=== PATIENT | female | born 1935 | race Caucasian/White ===

== ENCOUNTER → 2020-05-15 10:24 | Outpatient (NON) | payer MEDICARE, SELFPAY ==
[2020-05-15 11:10] LABS: Basophils Absolute Auto 0.05 K/mm3 (0.00-0.10); Basophils Percent Auto 0.4 % (0.0-1.0); Eosinophils Absolute Auto 0.27 K/mm3 (0.02-0.50); Eosinophils Percent Auto 1.9 % (1.0-6.0); Hematocrit 43.9 % (35.0-42.0); Hemoglobin 14.2 g/dL (11.7-13.8); Immature Granulocyte Absolute 0.06 K/mm3 (0.00-0.00); Immature Granulocyte Percent A 0.4 % (0.0-0.0); Lymphocytes Absolute Auto 2.55 K/mm3 (1.10-4.50); Lymphocytes Percent Auto 18.3 % (18.0-42.0); Mean Corpuscular HGB Conc 32.3 g/dL (32.0-36.0); Mean Corpuscular Hemoglobin 33.8 pg (27.0-31.0); Mean Corpuscular Volume 104.5 fL (78.0-102.0); Mean Platelet Volume 11.4 fl (9.2-11.8); Monocytes Percent Auto 9.4 % (2.0-11.0); Neutrophils Absolute Auto 9.7 K/mm3 (1.7-7.2); Neutrophils Percent Auto 69.6 % (50.0-70.0); Platelet Count Result 182 K/mm3 (150-420); Red Cell Distribution Width 13.3 % (11.6-14.4); White Blood Count 13.9 K/mm3 (4.8-10.8)
[2020-05-15 11:26] LABS: Add Urine Microscopic? YES; Appearance Urine Cloudy (Clear); BNP 92.3 pg/mL (0-100); Bilirubin Urine Negative (Negative); Blood Urine Negative (Negative); Color Urine Yellow (Yellow); Glucose Urine UA Negative (Negative); Ketones Urine Trace (Negative); Leukocyte Esterase Ur 1+ (Negative); Nitrate Urine Positive (Negative); Protein Urine Negative (Negative); Urobilinogen Urine 0.2 mg/dL (0.2-1.0)
[2020-05-15 11:39] LABS: Alanine Aminotransferase 33 U/L (14-59); Alkaline Phosphatase 78 U/L (46-116); Anion Gap 7 mmol/L (8-16); Aspartate Amino Transferase 18 U/L (15-37); Bilirubin,Total 0.5 mg/dL (0.00-1.00); Blood Urea Nitrogen 16 mg/dL (7-18); Calcium 9.9 mg/dL (8.5-10.1); Carbon Dioxide 32 mmol/L (21-32); Chloride 107 mmol/L (98-108); Creatine Kinase 44 U/L (26-192); Estimated Glomerular Filt Rate 60; Free T3 2.61 pg/mL (2.18-3.98); Free T4 Free Thyroxine 1.03 ng/dL (0.76-1.46); Glucose 98 mg/dL (70-99); Magnesium 2.2 mg/dL (1.8-2.4); Osmolality Calculated 303 mOsm/kg (285-295); Phosphorus 3.6 mg/dL (2.6-4.7); Sodium 146 mmol/L (136-145); Thyroid Stimulating Hormone 3.93 uIU/mL (0.36-3.74); Total Protein 6.6 g/dL (6.4-8.2)
[2020-05-15 11:48] LABS: RBC Urine 0-2 /hpf (0-2); WBC Urine 21-30 /hpf (0-3)
[2020-05-15 11:49] LABS: Transitional Epi Cells Urine Few /hpf
[2020-05-15 11:51] LABS: D Dimer 16.22 mg/L (0.19-0.50)
[2020-05-15 12:04] LABS: Troponin I 0.07 ng/mL (0.00-0.056)
== END ==
PROVIDERS: Visit Provider Internal Medicine
DX: R06.00 Dyspnea, unspecified (principal); R41.0 Disorientation, unspecified; R00.0 Tachycardia, unspecified; R82.90 Unspecified abnormal findings in urine
CPT/HCPCS: 36415; 71046; 80053; 81001; 82550; 82553; 83735; 83880; 84100; 84439; 84443; 84481; 84484; 85025; 85380; 87077; 87086; 87088; 87186

== ENCOUNTER 2020-05-15 10:45 | Outpatient (CLI) | payer MEDICARE, MEDICAID, SELFPAY ==
--- NOTE | ~2020-05-15 | XR_ITS ---
XR chest 2V 05/15/2020 11:07 Indication: Dyspnea and cough for 4 days Procedure: PA and lateral views of the chest Comparison: 12/06/2016 Findings: Heart size normal. Bibasilar atelectasis. No focal pneumonia, edema or effusion. No pneumot horax. Moderate thoracic spondylosis. There is atherosclerosis of the aorta. Impression: 1: Bibasilar atelectasis. Reviewed, dictated and finalized at location B. Impression: 1: Bibasilar atelectasis.
== END 2020-05-15 10:46 | disposition home or self-care (01) ==
LOC: CHSIMG 10:49
PROVIDERS: PCP Internal Medicine; Visit Provider Internal Medicine
DX: R06.00 Dyspnea, unspecified (principal)
CPT/HCPCS: 71046

== ENCOUNTER 2020-05-15 12:32 | Inpatient (IN) | payer MEDICARE, MEDICAID, SELFPAY ==
[2020-05-15] VITALS (7 sets, daily range): BP systolic 132–186; BP diastolic 76–95; PULSE 64–83; RESP 16–20; TEMP 36.5–37.1; O2SAT 93–96; BMI 24.9
--- NOTE | ~2020-05-15 | US_ITS ---
EXAMINATION: US carotid duplex BI DATE: 05/16/2020 08:24 INDICATION: Right heart strain TECHNIQUE: Grayscale, color Doppler, and pulsed Doppler images of the cervical carotid arteries were obtained. The degree of vessel stenosis is placed in one of the following categories: normal, <50%, 5 0-69%, >=70% but less than near-occlusion, near-occlusion, or total occlusion. Note that percent sten osis relative to normal distal artery lumen diameter is indirectly measured from velocity measurement s as described by Chau, et al. Radiology 2003; [id number]. Notes: Normal: Peak systolic velocity <125 centimeters/sec and no plaque <50%. Peak systolic velocity <125 ( EDV <40; ICA/CCA PSV ratio <2.0; used these factors only a tandem lesions or low cardiac output or co ntralateral disease) 50-69 %: PSV 125-230 (EDV 40-100; ratio 2-4) >= 70% but less than near occlusion: PSV greater than 230 (EDV > 100; ratio> 4.0) Near Occlusion: PSV that is variable; markedly narrowed lumen Occlusion: Absent flow on color/spectral Doppler and no lumen on gottlieb scale. COMPARISON: None. FINDINGS: RIGHT: The right common carotid artery (CCA) peak systolic velocity (PSV) is 70 cm/s. The right internal car otid artery (ICA) PSV is 50 cm/s. The right ICA end-diastolic velocity (EDV) is 7 cm/s. The right ICA /CCA PSV ratio is 0.7. The external carotid artery (ECA) PSV is 110 cm/s. There is antegrade flow in the right vertebral artery. LEFT: The left CCA PSV is 61 cm/s. The left ICA PSV is 50 cm/s. The left ICA EDV is 12 cm/s. The left ICA/C CA PSV ratio is 0.8. The ECA PSV is 92 cm/s. There is antegrade flow in the left vertebral artery. IMPRESSION: 1. Less than 50% stenosis in the right internal carotid artery by sonographic criteria. 2. Less than 50% stenosis in the left internal carotid artery by sonographic criteria. Reviewed, dictated and finalized at location B. IMPRESSION: 1. Less than 50% stenosis in the right internal carotid artery by sonographic chetan ed[place]. 2. Less than 50% stenosis in the left internal carotid artery by sonographic zoey gagnon.
--- NOTE | ~2020-05-15 | CT_ITS ---
EXAMINATION: CTA chest PE protocol EXAM DATE: 05/15/2020 13:33 INDICATION: Dyspnea and shortness of breath. TECHNIQUE: Spiral CTA of the chest (pulmonary arteries) was performed with 100 cc Omnipaque 350 intr avenous contrast injection. Images were acquired during the pulmonary arterial phase. Coronal maxi mum intensity projection 3D-reconstructions were created by the technologist on dedicated workstation . Axial, coronal and sagittal reformatted images were reviewed. The dose-length product (DLP) for t his examination was 226.14 mGy-cm. The exposure was tailored according to patient size (auto mA exp osure control), and iterative reconstruction (ASIR) was used as additional dose reduction technique. There is no prior study for comparison. FINDINGS: There are right-sided interlobar and multiple segmental pulmonary emboli. There are severa l subsegmental left pulmonary emboli. Moderate clot burden with evidence of right heart strain. No t horacic aortic dissection. The lungs are clear. There are no pleural or pericardial effusions. T racheobronchial tree is patent. There is no mediastinal, hilar or axillary lymphadenopathy. There is no pneumothorax. There is cardiomegaly. There is mild coronary arterial calcification, arteria l sclerosis. Upper abdomen is unremarkable. There is thoracic spondylosis without osteoblastic or o steolytic lesions identified. Mid esophagus is patulous, but no focal wall thickening. IMPRESSION: 1. Multiple right-sided, fewer left-sided pulmonary emboli, moderate clot burden with evidence of ri ght heart strain. 2. Cardiomegaly. 3. Patulous esophagus. I discussed pulmonary emboli with Kris Calzada MD at 05/15/2020 13:43 CDT. Reviewed, dictated and finalized at location A. IMPRESSION: 1. Multiple right-sided, fewer left-sided pulmonary emboli, moderate clot arlen en with evidence of right heart strain. 2. Cardiomegaly. 3. Patulous esophagus. I discussed pulmonary emboli with Kris Calzada MD at 05/15/2020 13:43 CDT.
--- NOTE | 2020-05-15 12:38 | ED.SOB ---
HPI - SOB/Dyspnea General Chief Complaint: Shortness of Breath/Dyspnea Stated Complaint: possible blood clot Time Seen by Provider: 05/15/20 12:39 Source: patient and RN notes reviewed Mode of arrival: ambulatory Limitations: no limitations History of Present Illness MD elicited complaint: shortness of breath Onset (ago): day(s) (3) Timing: intermittent Severity: moderate Exacerbating factors: exertion Relieving factors: rest Associated symptoms: denies other symptoms Treatment prior to arrival: none Related Data Home oxygen amount: none Home Medications Medication Instructions Recorded Confirmed allopurinol 300 mg PO DAILY 05/15/20 05/15/20 apixaban [Eliquis] 2.2 mg PO BID 05/15/20 05/15/20 atorvastatin 20 mg PO DAILY 05/15/20 05/15/20 donepezil 10 mg PO DAILY 05/15/20 05/15/20 duloxetine 30 mg PO DAILY 05/15/20 05/15/20 famotidine 40 mg PO DAILY 05/15/20 05/15/20 gabapentin 600 mg PO DAILY 05/15/20 05/15/20 ipratropium bromide 1 spray INTRANASAL BID 05/15/20 05/15/20 levetiracetam 500 mg PO BID 05/15/20 05/15/20 polysaccharide iron complex 150 mg PO DAILY 05/15/20 05/15/20 [Ferrex 150] potassium chloride 10 meq PO BID 05/15/20 05/15/20 verapamil 240 mg PO DAILY 05/15/20 05/15/20 Allergies Allergy/AdvReac Type Severity Reaction Status Date / Time lisinopril Allergy Swelling Verified 05/15/20 12:49 of Lip/Tongue/Throat Review of Systems Constitutional: Constitutional: Denies chills, Denies fatigue, Denies fever(s) and Denies weakness Eyes: Eyes: Reports no additional eye complaints ENT: Reports system reviewed and no additional complaints, except as documented Cardiovascular: Cardiovascular: Reports no additional cardiovascular complaints Respiratory: Respiratory: Reports as per HPI and Denies cough Gastrointestinal: Gastrointestinal: Reports no additional gastrointestinal complaints Genitourinary: Genitourinary: Reports no additional female genitourinary complaints Musculoskeletal: Musculoskeletal: Reports no additional musculoskeletal complaints Integumentary/Breasts: Skin/Breast: Reports system reviewed and no additional complaints, except as docu Neurologic: Reports system reviewed and no additional complaints, except as documented Psychiatric: Psychiatric: Reports no additional psychiatric complaints Endocrine: Endocrine: Reports no additional endocrine complaints Hematologic/Lymphatic: Hematologic/Lymphatic: Reports no additional hematologic/lymphatic complaints [facility] Past Medical History Medical History (Updated 05/15/20 @ 15:22 by Kris Calzada MD) Ataxia due to acute cerebrovascular disease B12 deficiency anemia Coronary artery disease CVA (cerebral vascular accident) Diverticulitis Gout Hypercalcemia Hyperlipidemia Hypertension Osteoarthritis Overactive bladder Spinal stenosis Tricuspid regurgitation Surgical History Surgical History (Updated 05/15/20 @ 13:32 by Kris Calzada MD) H/O: hysterectomy History of appendectomy History of cholecystectomy History of hip replacement History of left knee replacement History of tonsillectomy and adenoidectomy Hx of repair of rotator cuff Social History Social History (Updated 05/15/20 @ 13:32 by Kris Calzada MD) Smoking status: Never smoker Alcohol intake: never Substance use: never Exam Const: General: healthy appearing and no acute distress Nutritional Appearance: well nourished and thin Orientation/consciousness: patient oriented x3 HENMT: Head: normal to inspection Face and sinus: normal facial exam Eyes: Conjunctivae: conjunctivae normal Pupils: Equal, round and reactive pupils present EOM: EOMs intact bilaterally Neck: Neck: normal visual inspection Chest: Chest palpation & inspection: normal inspection of the chest Resp: Effort & Inspection: normal respiratory effort Auscultation: crackles bilateral at the base Cardio: Rate: regular rate and not tachycardic Rhythm: regula
[2020-05-15] MEDS: HEPARIN SODIUM 5,000 UNITS/ML VIAL 4000 UNITS IV PUSH (14:09)
--- NOTE | 2020-05-15 14:19 | PC.NURSE ---
DR CABA CONS[facility] UPDATED ON TRANSFER PROCESS
[2020-05-15 14:26] LABS: INR 1.1; Partial Thromboplastin Time 24.4 SEC (22.3-31.6); Prothrombin Time 10.9 Seconds (9.64-11.0)
--- NOTE | 2020-05-15 15:44 | PC.NURSE ---
[facility] DECLINES ADMISSION - STATES PATIENT IS STABLE ENOUGH TO BE ADMITTED HERE - PT AND FAMILY UPDATED ON STATUS
[2020-05-15] MEDS: levETIRAcetam 500 MG TABLET PO (17:42)
[2020-05-15] MEDS: POTASSIUM CHLORIDE 10 MEQ TABLET PO (17:42)
[2020-05-15] MEDS: ENOXAPARIN 60 MG/0.6 ML SYRINGE SUB-Q (17:43)
[2020-05-16] VITALS (10 sets, daily range): BP systolic 112–154; BP diastolic 61–75; PULSE 62–130; RESP 14–20; TEMP 36.2–36.9; O2SAT 18–97
[2020-05-16 05:22] LABS: Basophils Absolute Auto 0.03 K/mm3 (0.00-0.10); Basophils Percent Auto 0.4 % (0.0-1.0); Eosinophils Absolute Auto 0.39 K/mm3 (0.02-0.50); Eosinophils Percent Auto 4.6 % (1.0-6.0); Hematocrit 41.6 % (35.0-42.0); Hemoglobin 13.4 g/dL (11.7-13.8); Immature Granulocyte Absolute 0.04 K/mm3 (0.00-0.00); Immature Granulocyte Percent A 0.5 % (0.0-0.0); Lymphocytes Absolute Auto 1.89 K/mm3 (1.10-4.50); Lymphocytes Percent Auto 22.4 % (18.0-42.0); Mean Corpuscular HGB Conc 32.2 g/dL (32.0-36.0); Mean Corpuscular Hemoglobin 33.2 pg (27.0-31.0); Mean Platelet Volume 10.1 fl (9.2-11.8); Monocytes Absolute Auto 0.72 K/mm3 (0.10-0.90); Monocytes Percent Auto 8.5 % (2.0-11.0); Neutrophils Absolute Auto 5.4 K/mm3 (1.7-7.2); Neutrophils Percent Auto 63.6 % (50.0-70.0); Platelet Count Result 172 K/mm3 (150-420); Red Blood Count 4.04 M/mm3 (4.20-5.40); Red Cell Distribution Width 13.4 % (11.6-14.4); White Blood Count 8.5 K/mm3 (4.8-10.8)
[2020-05-16 05:43] LABS: Anion Gap 5 mmol/L (8-16); Blood Urea Nitrogen 13 mg/dL (7-18); Calcium 9.6 mg/dL (8.5-10.1); Carbon Dioxide 33 mmol/L (21-32); Chloride 106 mmol/L (98-108); Estimated CRCL calculation 40 ml/min; Estimated Glomerular Filt Rate > 60; Glucose 92 mg/dL (70-99); Osmolality Calculated 298 mOsm/kg (285-295); Potassium 3.9 mmol/L (3.5-5.1); Sodium 144 mmol/L (136-145)
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
[2020-05-16] MEDS: IPRATROPIUM NASAL SPRAY 0.06% 15 ML BOTTLE 2 SPRAY NASAL ×2 (09:25→17:00)
[2020-05-16] MEDS: ENOXAPARIN 60 MG/0.6 ML SYRINGE SUB-Q ×2 (09:25→20:51)
[2020-05-16] MEDS: POTASSIUM CHLORIDE 10 MEQ TABLET PO ×2 (09:26→16:59)
[2020-05-16] MEDS: VERAPAMIL HCL ER 120 MG TABLET 240 MG PO (09:26)
[2020-05-16] MEDS: levETIRAcetam 500 MG TABLET PO ×2 (09:26→16:59)
[2020-05-16] MEDS: FAMOTIDINE 20 MG TABLET 40 MG PO (09:26)
[2020-05-16] MEDS: DULoxetine HCL 30 MG CAPSULE.DR PO (09:27)
[2020-05-16] MEDS: allopurinoL 300 MG TABLET PO (09:27)
[2020-05-16] MEDS: DONEPEZIL HCL 5 MG TABLET 10 MG PO (09:27)
[2020-05-16] MEDS: POLYSACCHARIDE IRON COMPLEX 150 MG CAPSULE PO (09:27)
[2020-05-16] MEDS: ATORVASTATIN 10 MG TABLET 20 MG PO (09:28)
[2020-05-16] MEDS: GABAPENTIN 300 MG CAPSULE 600 MG PO (09:28)
--- NOTE | 2020-05-16 13:01 | HOMEO2EVAL ---
Home Oxygen Evaluation RC: Home Oxygen (O2) Evaluation Start: 05/16/20 11:07 Freq: ONCE Status: Active Protocol: RPE Activity Type Activity Date Activity User E-Sign Co-Sign Detail Recorded Client Recorded Date Recorded By Document 05/16/20 12:45 SJB [id number] 05/16/20 13:00 SJB Document 05/16/20 12:46 SJB [id number] 05/16/20 13:00 SJB 05/16/20 05/16/20 12:45 12:46 Home O2 Evaluation Test Phase Resting Exercise Oxygen Delivery Room Air Pulse Oximetry (90-100 %) 94 93 Pulse Rate (60-100 beats/min) 72 130 H Activity Tolerance Good Excellent Rating of Perceived Dyspnea (PD) +1 Mild, Noticeable to the Participant but Not to an Observer Rate of Perceived Exertion (PE) 7 Ambulation Distance (feet) 250 Home Oxygen Evaluation Comments Pt walked approx 250 ft pushing w/c on room air. Great effort, jaqui very well. Sp02s mained between 92-95% on room air, although hr did maintain during walk between 123-143 . Pt had no complaints. PLB was taught. Treatment Charges O2 Evaluation
[2020-05-17] VITALS (8 sets, daily range): BP systolic 106–142; BP diastolic 57–77; PULSE 61–116; RESP 18–20; TEMP 36.1–36.8; O2SAT 93–98
--- NOTE | 2020-05-17 00:21 | PC.NURSE ---
SPO2 88% on room air. Placed patient on 2 liters O2, SPO2 up to 93%
--- NOTE | 2020-05-17 05:05 | PC.NURSE ---
Patient taken fresh linen and soap to clean up. Patient oxygen removed at this time.
--- NOTE | 2020-05-17 07:55 | PM.IMPN ---
Progress Note: A&P Assessment and Plan (1) Pulmonary emboli: Qualifiers: Acute cor pulmonale presence: with acute cor pulmonale Chronicity: acute Pulmonary embolism type: other Qualified Code(s): I26.09 - Other pulmonary embolism with acute cor pulmonale <Oscar BrionesFLOR-C - Last Filed: 05/17/20 13:29> Code(s): I26.99 - Other pulmonary embolism without acute cor pulmonale <Oscar McbrideFLOR zuniga-C - Last Filed: 05/17/20 13:29> Status: Acute <Oscar McbrideFLOR zuniga-C - Last Filed: 05/17/20 13:29> Assessment and Plan: 05/16/2020 Received Heparin 4,000 Units in the ER, Now Theraputic Lovenox, 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 Respiratory status has improved and is stable. <Oscar HopkinsCristina ReedFLOR zuniga-C - Last Filed: 05/17/20 13:29> (2) Urinary tract infection: Code(s): N39.0 - Urinary tract infection, site not specified <Oscar McbrideFLOR zuniga-C - Last Filed: 05/17/20 13:29> Status: Acute <Oscar McbrideFLOR zuniga-C - Last Filed: 05/17/20 13:29> Assessment and Plan: 05/16/2020 Start Rocephin 1 mg daily, monitor blood work 05/17/2020 Continue as noted above. <Oscar HopkinsCristina ReedFLOR zuniga-C - Last Filed: 05/17/20 13:29> (3) Hypertension: Code(s): I10 - Essential (primary) hypertension <Oscar HopkinsCristina Briones APN-C - Last Filed: 05/17/20 13:29> Status: Acute <Oscar McbrideFLOR zuniga-C - Last Filed: 05/17/20 13:29> Assessment and Plan: 05/16/2020 Monitor VS, Continue Verapamil, make adjustments/changes as needed 05/17/2020 Continue as above, blood pressure has been stable, heart rate continues to moved towards normal with activity, she was tachycardic in the 140s yesterday with activity today max of 120 with activity. <Oscar Edward LUCHO Briones - Last Filed: 05/17/20 13:29> (4) Hyperlipidemia: Code(s): E78.5 - Hyperlipidemia, unspecified <Oscar Edward LUCHO Briones - Last Filed: 05/17/20 13:29> Status: Acute <Oscar Edward LUCHO Briones - Last Filed: 05/17/20 13:29> Assessment and Plan: 05/16/2020 Heart healthy diet, continue Atorvastatin 05/17/2020 Continue as noted above <Oscar Edward LUCHO Briones - Last Filed: 05/17/20 13:29> Subjective Date/time seen: 05/17/20 07:55 Patient states that she is not having episodes of shortness of breath does state that she has a little increased work of breathing when walking to the bathroom but this is only slightly. Patient states that she does not notice her heart racing when she is up walking about. She denies any chest pain, any pain with breathing, no extremity pain, no abdominal pain, no headaches, no changes in vision. <Oscar LUCHO Peralta - Last Filed: 05/17/20 13:29> Review of Systems Review of Systems: Narrative: As noted above. <Oscar Edward LUCHO Briones - Last Filed: 05/17/20 13:29> Exam Narrative: Exam Narrative: Patient is able to talk in complete sentences and for several minutes at a time without shortness of breath. She is well-appearing and gets up to move about the room without difficulty. Respiratory report for oxygen evaluation states she did well walk 250 ft on room air SpO2 93% with mild shortness of breath reported by the patient. <LUCHO Mitchell - Last Filed: 05/17/20 13:29> Const: General: cooperative, healthy appearing, comfortable and no acute distress <LUCHO Mitchell - Last Filed: 05/17/20 13:29> Resp: Effort & Inspection: normal respiratory effort <LUCHO Mitchell - Last Filed: 05/17/20 13:29> Auscultation: clear to auscultation bilaterally <LUCHO Mitchell - Last Filed: 05/17/20 13:29> Cardio: Jugular venous distension: no JVD and other (no bruits aucultated) <LUCHO Mitchell - Last Filed: 05/17/20 13:29> Rate: regular rate <Ri
[2020-05-17] MEDS: ASPIRIN 81 MG CHEWABLE TABLET 324 MG PO (09:46)
[2020-05-17] MEDS: VERAPAMIL HCL ER 120 MG TABLET 240 MG PO (09:47)
[2020-05-17] MEDS: GABAPENTIN 300 MG CAPSULE 600 MG PO (09:47)
[2020-05-17] MEDS: allopurinoL 300 MG TABLET PO (09:47)
[2020-05-17] MEDS: POTASSIUM CHLORIDE 10 MEQ TABLET PO ×2 (09:48→17:55)
[2020-05-17] MEDS: DULoxetine HCL 30 MG CAPSULE.DR PO (09:48)
[2020-05-17] MEDS: ATORVASTATIN 10 MG TABLET 20 MG PO (09:48)
[2020-05-17] MEDS: POLYSACCHARIDE IRON COMPLEX 150 MG CAPSULE PO (09:48)
[2020-05-17] MEDS: levETIRAcetam 500 MG TABLET PO ×2 (09:48→17:55)
[2020-05-17] MEDS: FAMOTIDINE 20 MG TABLET 40 MG PO (09:48)
[2020-05-17] MEDS: DONEPEZIL HCL 5 MG TABLET 10 MG PO (09:48)
[2020-05-17] MEDS: ENOXAPARIN 60 MG/0.6 ML SYRINGE SUB-Q ×2 (09:52→21:05)
[2020-05-17] MEDS: IPRATROPIUM NASAL SPRAY 0.06% 15 ML BOTTLE 2 SPRAY NASAL ×2 (09:52→17:55)
[2020-05-17 13:33] LABS: Vitamin B12 964 pg/mL (193-986)
[2020-05-18] VITALS: BP 127/56; PULSE 61; PULSE 62; RESP 20; TEMP 36.7; O2SAT 96
[2020-05-18 04:00] VITALS: BP 127/62; PULSE 87; RESP 18; TEMP 36.6; O2SAT 96
[2020-05-18 05:40] LABS: Hematocrit 39.7 % (35.0-42.0); Hemoglobin 12.7 g/dL (11.7-13.8); Mean Corpuscular Hemoglobin 33.2 pg (27.0-31.0); Mean Corpuscular Volume 103.9 fL (78.0-102.0); Mean Platelet Volume 10.6 fl (9.2-11.8); Platelet Count Result 183 K/mm3 (150-420); Red Blood Count 3.82 M/mm3 (4.20-5.40); Red Cell Distribution Width 13.4 % (11.6-14.4)
[2020-05-18 05:58] LABS: Anion Gap 5 mmol/L (8-16); Blood Urea Nitrogen 19 mg/dL (7-18); Calcium 9.3 mg/dL (8.5-10.1); Carbon Dioxide 29 mmol/L (21-32); Chloride 111 mmol/L (98-108); Estimated CRCL calculation 39 ml/min; Estimated Glomerular Filt Rate > 60; Glucose 95 mg/dL (70-99); Osmolality Calculated 302 mOsm/kg (285-295); Potassium 4.2 mmol/L (3.5-5.1); Sodium 145 mmol/L (136-145)
[2020-05-18 08:00] VITALS: BP 123/72; PULSE 70; PULSE 89; RESP 14; TEMP 36.6; O2SAT 98
[2020-05-18] MEDS: allopurinoL 300 MG TABLET PO (09:08)
[2020-05-18] MEDS: APIXABAN 2.5 MG TABLET 10 MG PO (09:09)
[2020-05-18] MEDS: ATORVASTATIN 10 MG TABLET 20 MG PO (09:09)
[2020-05-18] MEDS: DONEPEZIL HCL 5 MG TABLET 10 MG PO (09:10)
[2020-05-18] MEDS: DULoxetine HCL 30 MG CAPSULE.DR PO (09:10)
[2020-05-18] MEDS: FAMOTIDINE 20 MG TABLET 40 MG PO (09:11)
[2020-05-18] MEDS: POLYSACCHARIDE IRON COMPLEX 150 MG CAPSULE PO (09:11)
[2020-05-18] MEDS: IPRATROPIUM NASAL SPRAY 0.06% 15 ML BOTTLE 2 SPRAY NASAL (09:11)
[2020-05-18] MEDS: GABAPENTIN 300 MG CAPSULE 600 MG PO (09:11)
[2020-05-18] MEDS: POTASSIUM CHLORIDE 10 MEQ TABLET PO (09:12)
[2020-05-18] MEDS: levETIRAcetam 500 MG TABLET PO (09:12)
[2020-05-18] MEDS: VERAPAMIL HCL ER 120 MG TABLET 240 MG PO (09:12)
--- NOTE | 2020-05-18 09:46 | PM.DS ---
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 Respiratory status has improved and is stable. 05/18/2020 Eliquis was started this morning and will be continued on discharge. 10 mg b.i.d. for 7 days then 5 mg b.i.d. thereafter. Patient has not had any issues with breathing today denies chest pain. (2) Urinary tract infection: Code(s): N39.0 - Urinary tract infection, site not specified Status: Acute Assessment and Plan: 05/16/2020 Start Rocephin 1 mg daily, monitor blood work 05/17/2020 Continue as noted above. 05/18/2020 Patient has received 3 days of Rocephin will not order any more antibiotics for discharge (3) Hypertension: Code(s): I10 - Essential (primary) hypertension Status: Acute Assessment and Plan: 05/16/2020 Monitor VS, Continue Verapamil, make adjustments/changes as needed 05/17/2020 Continue as above, blood pressure has been stable, heart rate continues to moved towards normal with activity, she was tachycardic in the 140s yesterday with activity today max of 120 with activity. 05/18/2020 Blood pressure has been stable continue medication on discharge (4) Hyperlipidemia: Code(s): E78.5 - Hyperlipidemia, unspecified Status: Acute Assessment and Plan: 05/16/2020 Heart healthy diet, continue Atorvastatin 05/17/2020 Continue as noted above 05/18/2020 Continue medications on discharge DS: Summary Time Spent with Patient Time attestation: Total time spent providing and/or coordinating discharge services: 30 minutes Exam Narrative: Exam Narrative: Patient has progressed well with physical therapy and occupational therapy and this will be continued through home health on discharge. Resp: Effort & Inspection: normal respiratory effort Auscultation: clear to auscultation bilaterally Cardio: Jugular venous distension: no JVD Rate: regular rate Rhythm: regular rhythm Heart sounds: S1 normal heart sound present and S2 normal heart sound present Extrem: Other: Improving right side range of motion strength. Patient still has problems with flexing the right foot and is still a little weak but improved on right fingers DS: Data Data Completed and Pending Labs on day of discharge: Labs from last 24 hours 05/18/20 05/18/20 05/17/20 05:19 05:19 10:44 WBC 7.0 RBC 3.82 L Hgb 12.7 Hct 39.7 MCV 103.9 H MCH 33.2 H MCHC 32.0 RDW 13.4 Plt Count 183 MPV 10.6 Sodium 145 Potassium 4.2 Chloride 111 H Carbon Dioxide 29 Anion Gap 5 L BUN 19 H Creatinine 0.80 Estim Creat Clear Calc 39 Estimated GFR > 60 Glucose 95 Calculated Osmolality 302 H Calcium 9.3 Vitamin B12 964 Discharge Plan Discharge Attending physician on discharge: Wong Floyd Discharging Clinician: Oscar Briones Patient Disposition: Home, Self-Care Activity: as tolerated Diet: heart healthy Discharge Instructions: Patient is going to be going home self-care she has family members that will assist her at home. My understanding is the family may set up PT and OT at home. Patient Instructions: Pulmonary Embolism (GEN) Stand Alone Forms: General Discharge Information Follow-up/Referrals: Marlo Busby,
[2020-05-18 11:32] VITALS: BP 130/64; PULSE 77; RESP 16; TEMP 36.7; O2SAT 97
--- NOTE | 2020-05-19 13:45 | PC.NURSE ---
discharge call back [phone] No answer or ability to leave a message.
== END 2020-05-18 14:50 | disposition home or self-care (01) | DRG 175 ==
LOC: CHSED 15:44 → CHS2ND 16:37
PROVIDERS: Nurse Practitioner Family; Admitting Provider Emergency Medicine; Emergency Provider Emergency Medicine; PCP Internal Medicine; Visit Provider Emergency Medicine
DX: I26.09 Other pulmonary embolism with acute cor pulmonale (principal); N39.0 Urinary tract infection, site not specified; I69.393 Ataxia following cerebral infarction; I10 Essential (primary) hypertension; I36.1 Nonrheumatic tricuspid (valve) insufficiency; I25.10 Atherosclerotic heart disease of native coronary artery without angina pectoris; E83.52 Hypercalcemia; E78.5 Hyperlipidemia, unspecified; E53.8 Deficiency of other specified B group vitamins; K57.90 Diverticulosis of intestine, part unspecified, without perforation or abscess without bleeding; M19.90 Unspecified osteoarthritis, unspecified site; I34.0 Nonrheumatic mitral (valve) insufficiency; Z96.659 Presence of unspecified artificial knee joint; M10.9 Gout, unspecified; M48.00 Spinal stenosis, site unspecified; N32.81 Overactive bladder; Z96.652 Presence of left artificial knee joint; Z96.649 Presence of unspecified artificial hip joint
CPT/HCPCS: 36415; 71046; 71275; 80048; 80053; 81001; 82550; 82553; 82607; 83735; 83880; 84100; 84439; 84443; 84481; 84484; 85025; 85027; 85380; 85610; 85730; 87077; 87086; 87088; 87186; 93880; 94618; 96374; 99285; A9270; J0696; J1644; J1650; Q9965

== ENCOUNTER 2020-11-24 11:19 | Outpatient (CLI) | payer MEDICARE, MEDICAID, SELFPAY ==
--- NOTE | ~2020-11-24 | XR_ITS ---
XR chest 2V 11/24/2020 11:52 Indication: Fatigue and dyspnea Procedure: 2 view chest Comparison: Comparison to multiple prior studies sequentially, with oldest reviewed study dated 08/02. Findings: Heart size normal. No focal air space disease, pulmonary edema, pleural effusion or suspect ed pneumothorax. The lungs are hyperinflated which is consistent with, but not diagnostic of chronic obstructive pulmonary disease. There is mild thoracic spondylosis Impression: 1: No acute cardiopulmonary disease. Reviewed, dictated and finalized at location B. Impression: 1: No acute cardiopulmonary disease.
[2020-11-24 11:37] LABS: Basophils Absolute Auto 0.05 K/mm3 (0.00-0.10); Basophils Percent Auto 0.6 % (0.0-1.0); Eosinophils Percent Auto 3.4 % (1.0-6.0); Hematocrit 40.1 % (35.0-42.0); Hemoglobin 12.9 g/dL (11.7-13.8); Immature Granulocyte Absolute 0.03 K/mm3 (0.00-0.00); Immature Granulocyte Percent A 0.3 % (0.0-0.0); Lymphocytes Percent Auto 23.9 % (18.0-42.0); Mean Corpuscular HGB Conc 32.2 g/dL (32.0-36.0); Mean Corpuscular Hemoglobin 33.1 pg (27.0-31.0); Mean Corpuscular Volume 102.8 fL (78.0-102.0); Mean Platelet Volume 10.8 fl (9.2-11.8); Monocytes Absolute Auto 0.84 K/mm3 (0.10-0.90); Monocytes Percent Auto 9.6 % (2.0-11.0); Neutrophils Absolute Auto 5.5 K/mm3 (1.7-7.2); Neutrophils Percent Auto 62.2 % (50.0-70.0); Platelet Count Result 204 K/mm3 (150-420); Red Cell Distribution Width 13.5 % (11.6-14.4); White Blood Count 8.8 K/mm3 (4.8-10.8)
[2020-11-24 11:39] LABS: Add Urine Microscopic? YES; Appearance Urine Clear (Clear); Bilirubin Urine Negative (Negative); Blood Urine Negative (Negative); Color Urine Yellow (Yellow); Glucose Urine UA Negative (Negative); Ketones Urine Trace (Negative); Leukocyte Esterase Ur Trace (Negative); Nitrate Urine Negative (Negative); Protein Urine Trace (Negative); Specific Grav Ur >= 1.030 (1.010-1.020); Urobilinogen Urine 0.2 mg/dL (0.2-1.0); pH Urine 5.5 (5.0-8.0)
[2020-11-24 11:44] LABS: Bacteria Urine Trace /hpf; Mucus Urine Few /lpf; RBC Urine None seen /hpf (0-2); Squamous Epithelial Cell Urine Few /hpf (Few); WBC Urine 0-3 /hpf (0-3)
[2020-11-24 12:14] LABS: BNP 66.5 pg/mL (0-100)
[2020-11-24 12:43] LABS: Alanine Aminotransferase 28 U/L (14-59); Albumin Level 3.6 g/dL (3.4-5.0); Alkaline Phosphatase 82 U/L (46-116); Anion Gap 8 mmol/L (8-16); Aspartate Amino Transferase 16 U/L (15-37); Bilirubin,Total 0.5 mg/dL (0.00-1.00); Blood Urea Nitrogen 26 mg/dL (7-18); Calcium 9.1 mg/dL (8.5-10.1); Carbon Dioxide 30 mmol/L (21-32); Chloride 105 mmol/L (98-108); Estimated Glomerular Filt Rate 60; Free T3 2.46 pg/mL (2.18-3.98); Free T4 Free Thyroxine 0.88 ng/dL (0.76-1.46); Glucose 85 mg/dL (70-99); Osmolality Calculated 299 mOsm/kg (285-295); Potassium 4.5 mmol/L (3.5-5.1); Sodium 143 mmol/L (136-145); Thyroid Stimulating Hormone 2.45 uIU/mL (0.36-3.74)
[2020-11-24 13:06] LABS: CRP < 0.2 mg/dL (0.0-0.9)
[2020-11-28 11:00] LABS: Methylmalonic Acid 366 nmol/L (87-318)
== END 2020-11-24 11:20 | disposition home or self-care (01) ==
LOC: CHSLAB 11:22
PROVIDERS: PCP Internal Medicine; Visit Provider Internal Medicine
DX: R53.83 Other fatigue (principal); R06.00 Dyspnea, unspecified; N39.0 Urinary tract infection, site not specified; D75.89 Other specified diseases of blood and blood-forming organs
CPT/HCPCS: 36415; 71046; 80053; 81001; 83735; 83880; 83921; 84439; 84443; 84481; 85025; 86140; 87086; 87088

== ENCOUNTER 2021-02-23 09:08 | Outpatient (CLI) | payer MEDICARE, MEDICAID, SELFPAY ==
[2021-02-23] MEDS: DENOSUMAB 60 MG/ML SYRINGE SUB-Q (09:26)
[2021-02-23 09:32] VITALS: BMI 26.6
== END 2021-02-23 09:09 | disposition home or self-care (01) ==
LOC: CHSTREATRM 09:14
PROVIDERS: PCP Internal Medicine; Visit Provider Internal Medicine
DX: M81.0 Age-related osteoporosis without current pathological fracture (principal)
CPT/HCPCS: 96372; J0897

== ENCOUNTER 2021-10-15 08:11 | Outpatient (CLI) | payer OTHER, SELFPAY ==
--- NOTE | 2021-10-15 16:55 | WPDCARIOSTRE ---
Nuclear Stress Test INDICATIONS Indications: CAD, preop PROCEDURE Procedure Performed: Myocardial Perf Spect-Multi Procedure: Patient underwent a lexiscan stress test and immediately was injected with 34 mCi of cardiolyte. Multiple tomographic images were obtained. These were of good quality. There is no evidence of decrease perfusion noted during stress imaging. A separate resting images were obtained after patient was injected with 9.8 mCi of cardiolyte. Multiple tomographic images were obtained. These were of adequate quality. There is no evidence of decrease perfusion noted during rest imaging. CONCLUSION Conclusion: 1. Normal myocardial perfusion imaging demonstrating no perfusion defects noted during stress or rest imaging. 2. No evidence of reversible ischemia. 3. Left ventriculogram demonstrates normal measured ejection fraction of 70%. No wall motion abnormalities. 4. TID score is normal at 0.97.
== END 2021-10-15 08:12 | disposition home or self-care (01) ==
LOC: CHSIMG 08:12
PROVIDERS: PCP Internal Medicine; Visit Provider Internal Medicine
DX: I25.10 Atherosclerotic heart disease of native coronary artery without angina pectoris (principal); Z01.818 Encounter for other preprocedural examination
CPT/HCPCS: 78452; 93017; A9502; J2785

== ENCOUNTER 2024-05-20 08:51 | Outpatient (CLI) | payer OTHER, SELFPAY ==
--- NOTE | ~2024-05-20 | CT_ITS ---
EXAMINATION: CTA brain carotid DATE: 05/20/2024 10:09 INDICATION: Transient ischemic attack. Neck pain. TECHNIQUE: Computed tomographic angiography (CTA) of the head was performed without and with 100 mL O mnipaque-350 intravenous contrast. CTA of the neck was performed with intravenous contrast. Automated exposure control and iterative reconstruction technique were employed. The dose-length product was 1 800.46 mGy-cm. Maximum intensity projection and volume rendered 3D-reconstructions were created by drew chavez technologist on a separate workstation. COMPARISON: Head CT 06/21/2017 FINDINGS: HEAD CTA: There is old infarct in the the cerebellum bilaterally. There is an old infarct in left mine lamus. There is an old infarct in left caudate nucleus. There is an old infarct in left parietal lobe . There are scattered areas of low attenuation in the cerebral white matter. There is no intracranial hemorrhage, acute infarction, or abnormal intracranial mass lesion. The ventricles are normal in siz e. The paranasal sinuses are clear. The mastoid air cells are normal. There are likely changes of ocu lar lens replacement surgeries. Left vertebral artery is dominant. There is no significant stenosis o f basilar artery or the posterior cerebral arteries. The posterior communicating arteries are normal. There is no significant stenosis of the intracranial internal carotid arteries or anterior or middle cerebral arteries. Anterior communicating artery is normal. There is no aneurysm. NECK CTA: There are no pathologically enlarged lymph nodes. There is no significant stenosis of the v ertebral arteries. There is plaque in the proximal internal carotid arteries. There is 0% stenosis of the proximal right internal carotid artery relative to normal distal artery lumen diameter (NASCET c riteria). There is 0% stenosis of the proximal left internal carotid artery relative to normal distal artery lumen diameter. There is severe cervical spondylosis. There is mild chronic anterior wedging of multiple thoracic vertebral bodies. IMPRESSION: 1. Old infarcts involving the cerebellum, left thalamus, left caudate nucleus, and left parietal lobe . 2. Extensive nonspecific cerebral white matter disease, which likely represents chronic small vessel ischemic disease. 3. No aneurysm or significant intracranial arterial stenosis. 4. 0% stenosis of the proximal internal carotid arteries relative to normal distal artery lumen diame ters (NASCET criteria). Reviewed, dictated and finalized at location A. IMPRESSION: 1. Old infarcts involving the cerebellum, left thalamus, left caudate nucleus, and left parietal lobe. 2. Extensive nonspecific cerebral white matter disease, which likely represents chronic small vessel ischemic disease. 3. No aneurysm or significant intracranial arterial stenosis. 4. 0% stenosis of the proximal internal carotid arteries relative to normal dis narciso artery lumen diameters (NASCET criteria).
[2024-05-20 09:15] LABS: Estimated Glomerular Filt Rate 54
== END 2024-05-20 08:52 | disposition home or self-care (01) ==
LOC: CHSIMG 08:54
PROVIDERS: PCP Internal Medicine; Visit Provider Internal Medicine
DX: G45.9 Transient cerebral ischemic attack, unspecified (principal); R90.82 White matter disease, unspecified
CPT/HCPCS: 70496; 70498; Q9967

== ENCOUNTER 2024-06-18 15:16 | Outpatient (CLI) | payer OTHER, SELFPAY ==
[2024-06-18 15:41] LABS: Basophils Absolute Auto 0.03 K/mm3 (0.00-0.10); Basophils Percent Auto 0.4 % (0.0-1.0); Eosinophils Absolute Auto 0.38 K/mm3 (0.02-0.50); Eosinophils Percent Auto 5.4 % (1.0-6.0); Hematocrit 35.1 % (35.0-42.0); Hemoglobin 11.5 g/dL (11.7-13.8); Immature Granulocyte Absolute 0.04 K/mm3 (0.00-0.00); Immature Granulocyte Percent A 0.6 % (0.0-0.0); Lymphocytes Absolute Auto 1.23 K/mm3 (1.10-4.50); Lymphocytes Percent Auto 17.5 % (18.0-42.0); Mean Corpuscular HGB Conc 32.8 g/dL (32-36); Mean Corpuscular Hemoglobin 33.6 pg (27.0-31.0); Mean Corpuscular Volume 102.6 fL (78.0-102.0); Mean Platelet Volume 9.9 fl (9.2-11.8); Monocytes Absolute Auto 0.59 K/mm3 (0.10-0.90); Monocytes Percent Auto 8.4 % (2.0-11.0); Neutrophils Absolute Auto 4.75 K/mm3 (1.70-7.20); Neutrophils Percent Auto 67.7 % (50.0-70.0); Platelet Count Result 287 K/mm3 (150-420); Red Blood Count 3.42 M/mm3 (4.20-5.40); Red Cell Distribution Width 13.2 % (11.6-14.4)
[2024-06-18 15:49] LABS: Add Urine Microscopic? NO; Appearance Urine Clear (Clear); Bilirubin Urine Negative (Negative); Blood Urine Negative (Negative); Color Urine Light Yellow (Yellow); Glucose Urine UA Negative (Negative); Ketones Urine Negative (Negative); Leukocyte Esterase Ur Negative (Negative); Nitrate Urine Negative (Negative); Protein Urine Negative (Negative); Urobilinogen Urine 0.2 mg/dL (0.2-1.0); pH Urine 5.5 (5.0-8.0)
[2024-06-18 16:37] LABS: Alanine Aminotransferase 14 U/L (14-59); Albumin Level 2.7 g/dL (3.4-5.0); Alkaline Phosphatase 107 U/L (46-116); Anion Gap 6 mmol/L (4-12); Aspartate Amino Transferase 12 U/L (15-37); Bilirubin,Total 0.3 mg/dL (0.00-1.00); Blood Urea Nitrogen 14 mg/dL (7-18); CRP 2.3 mg/dL (0.0-0.9); Calcium 9.4 mg/dL (8.5-10.1); Carbon Dioxide 31 mmol/L (21-32); Chloride 104 mmol/L (98-108); Estimated Glomerular Filt Rate > 60; Glucose 123 mg/dL (70-99); Osmolality Calculated 293 mOsm/kg (285-295); Sodium 141 mmol/L (136-145); Total Protein 5.4 g/dL (6.4-8.2)
== END 2024-06-18 15:17 | disposition home or self-care (01) ==
LOC: CHSLAB 15:18
PROVIDERS: PCP Internal Medicine; Visit Provider Internal Medicine
DX: N39.0 Urinary tract infection, site not specified (principal); I10 Essential (primary) hypertension
CPT/HCPCS: 36415; 80053; 81003; 83735; 84443; 85025; 86140; 87086; 87088

== ENCOUNTER 2024-06-29 12:30 | Outpatient (NON) | payer OTHER, SELFPAY ==
[2024-06-29 13:50] LABS: MRSA (PCR) NOT DETECTED (NOT DETECTE)
== END 2024-06-29 12:31 | disposition home or self-care (01) ==
PROVIDERS: Visit Provider Internal Medicine
DX: Z22.322 Carrier or suspected carrier of Methicillin resistant Staphylococcus aureus (principal); Z11.2 Encounter for screening for other bacterial diseases
CPT/HCPCS: 87641

== ENCOUNTER 2024-07-07 18:24 | Outpatient (NON) | payer OTHER, SELFPAY ==
[2024-07-07 18:37] LABS: Add Urine Microscopic? YES; Appearance Urine Clear (Clear); Bilirubin Urine Negative (Negative); Blood Urine Negative (Negative); Color Urine Light Yellow (Yellow); Glucose Urine UA Negative (Negative); Ketones Urine Trace (Negative); Leukocyte Esterase Ur Trace LEU/UL (Negative); Nitrate Urine Negative (Negative); Protein Urine Negative (Negative); Specific Grav Ur 1.025 (1.010-1.020)
[2024-07-07 18:46] LABS: Bacteria Urine Trace /hpf; RBC Urine 0-2 /hpf (0-2); Squamous Epithelial Cell Urine Few /hpf (Few)
== END 2024-07-07 18:25 | disposition home or self-care (01) ==
LOC: CHSLAB 18:25
PROVIDERS: Visit Provider Internal Medicine
DX: N39.0 Urinary tract infection, site not specified (principal)
CPT/HCPCS: 81001

== ENCOUNTER 2024-07-08 09:46 | Outpatient (NON) | payer OTHER, SELFPAY ==
[2024-07-08 11:15] LABS: MRSA (PCR) NOT DETECTED (NOT DETECTE)
== END 2024-07-08 09:47 | disposition home or self-care (01) ==
LOC: CHSLAB 09:52
PROVIDERS: PCP Internal Medicine; Visit Provider Internal Medicine
DX: A49.02 Methicillin resistant Staphylococcus aureus infection, unspecified site (principal)
CPT/HCPCS: 87641

== ENCOUNTER 2024-08-13 10:23 | Outpatient (CLI) | payer MEDICARE, SELFPAY ==
[2024-08-13 11:02] LABS: Basophils Absolute Auto 0.05 K/mm3 (0.00-0.10); Basophils Percent Auto 0.6 % (0.0-1.0); Eosinophils Absolute Auto 0.21 K/mm3 (0.02-0.50); Eosinophils Percent Auto 2.6 % (1.0-6.0); Hematocrit 44.3 % (35.0-42.0); Hemoglobin 14.9 g/dL (11.7-13.8); Immature Granulocyte Absolute 0.02 K/mm3 (0.00-0.00); Immature Granulocyte Percent A 0.2 % (0.0-0.0); Immature Platelet Fraction Pct 5.5 % (1.0-7.0); Lymphocytes Absolute Auto 2.25 K/mm3 (1.10-4.50); Lymphocytes Percent Auto 27.5 % (18.0-42.0); Mean Corpuscular HGB Conc 33.6 g/dL (32-36); Mean Corpuscular Hemoglobin 33.3 pg (27.0-31.0); Mean Corpuscular Volume 98.9 fL (78.0-102.0); Mean Platelet Volume 11.6 fl (9.2-11.8); Monocytes Absolute Auto 0.75 K/mm3 (0.10-0.90); Monocytes Percent Auto 9.2 % (2.0-11.0); Neutrophils Absolute Auto 4.89 K/mm3 (1.70-7.20); Neutrophils Percent Auto 59.9 % (50.0-70.0); Platelet Count Result 175 K/mm3 (150-420); Red Blood Count 4.48 M/mm3 (4.20-5.40); Red Cell Distribution Width 14.1 % (11.6-14.4); White Blood Count 8.2 K/mm3 (4.8-10.8)
[2024-08-13 11:05] LABS: Add Urine Microscopic? YES; Appearance Urine Sl Cloudy (Clear); Bilirubin Urine 1+ (Negative); Blood Urine Negative (Negative); Color Urine Dark Yellow (Yellow); Glucose Urine UA Negative (Negative); Ketones Urine Trace (Negative); Leukocyte Esterase Ur Trace LEU/UL (Negative); Nitrate Urine Positive (Negative); Protein Urine Trace (Negative); Specific Grav Ur >= 1.030 (1.010-1.020); pH Urine 5.5 (5.0-8.0)
[2024-08-13 11:15] LABS: Partial Thromboplastin Time 21.2 Sec (23.9-30.70); Prothrombin Time 11.1 Seconds (9.50-12.1)
[2024-08-13 11:16] LABS: Bacteria Urine 3+ /hpf; RBC Urine None seen /hpf (0-2); Squamous Epithelial Cell Urine Few /hpf (Few); WBC Urine 51-75 /hpf (0-3)
[2024-08-13 11:26] LABS: Alanine Aminotransferase 26 U/L (14-59); Alkaline Phosphatase 113 U/L (46-116); Anion Gap 9 mmol/L (4-12); Aspartate Amino Transferase 23 U/L (15-37); Bilirubin,Total 0.6 mg/dL (0.00-1.00); Blood Urea Nitrogen 18 mg/dL (7-18); Calcium 9.9 mg/dL (8.5-10.1); Carbon Dioxide 29 mmol/L (21-32); Chloride 105 mmol/L (98-108); Estimated Glomerular Filt Rate > 60; Glucose 93 mg/dL (70-99); Osmolality Calculated 297 mOsm/kg (285-295); Potassium 3.7 mmol/L (3.5-5.1); Sodium 143 mmol/L (136-145); Total Protein 6.6 g/dL (6.4-8.2)
== END 2024-08-13 10:24 | disposition home or self-care (01) ==
LOC: CHSLAB 10:31
PROVIDERS: PCP Internal Medicine; Visit Provider Internal Medicine Cardiovascular Disease
DX: R00.1 Bradycardia, unspecified (principal); R00.2 Palpitations; I34.0 Nonrheumatic mitral (valve) insufficiency; N39.0 Urinary tract infection, site not specified; R06.00 Dyspnea, unspecified; R07.9 Chest pain, unspecified
CPT/HCPCS: 36415; 80053; 81001; 85025; 85055; 85610; 85730; 87086; 87088

== ENCOUNTER 2024-08-27 15:36 | Outpatient (CLI) | payer MEDICARE, SELFPAY ==
[2024-08-27 15:46] LABS: Add Urine Microscopic? NO; Appearance Urine Clear (Clear); Bilirubin Urine Negative (Negative); Blood Urine Negative (Negative); Color Urine Light Yellow (Yellow); Glucose Urine UA Negative (Negative); Ketones Urine Negative (Negative); Leukocyte Esterase Ur Negative LEU/UL (Negative); Nitrate Urine Negative (Negative); Protein Urine Negative (Negative); Urobilinogen Urine 0.2 mg/dL (0.2-1.0)
== END 2024-08-27 15:37 | disposition home or self-care (01) ==
LOC: CHSLAB 15:39
PROVIDERS: PCP Internal Medicine; Visit Provider Internal Medicine
DX: N39.0 Urinary tract infection, site not specified (principal)
CPT/HCPCS: 81003; 87086; 87088

== ENCOUNTER 2024-08-31 13:49 | Outpatient (NON) | payer MEDICARE, SELFPAY ==
[2024-08-31 14:15] LABS: Alanine Aminotransferase 19 U/L (14-59); Albumin Level 3.2 g/dL (3.4-5.0); Alkaline Phosphatase 92 U/L (46-116); Anion Gap 10 mmol/L (4-12); Aspartate Amino Transferase 19 U/L (15-37); Bilirubin,Total 0.3 mg/dL (0.00-1.00); Blood Urea Nitrogen 26 mg/dL (7-18); CRP 1.9 mg/dL (0.0-0.9); Calcium 9.7 mg/dL (8.5-10.1); Carbon Dioxide 27 mmol/L (21-32); Chloride 107 mmol/L (98-108); Estimated Glomerular Filt Rate > 60; Glucose 97 mg/dL (70-99); NT Pro B Type Natriuretic Pept 486 pg/mL (0-450); Osmolality Calculated 302 mOsm/kg (285-295); Potassium 4.8 mmol/L (3.5-5.1); Sodium 144 mmol/L (136-145); Total Protein 5.8 g/dL (6.4-8.2)
[2024-08-31 15:11] LABS: Basophils Absolute Auto 0.03 K/mm3 (0.00-0.10); Basophils Percent Auto 0.4 % (0.0-1.0); Eosinophils Absolute Auto 0.27 K/mm3 (0.02-0.50); Eosinophils Percent Auto 3.2 % (1.0-6.0); Hematocrit 40.2 % (35.0-42.0); Hemoglobin 12.9 g/dL (11.7-13.8); Immature Granulocyte Absolute 0.05 K/mm3 (0.00-0.00); Immature Granulocyte Percent A 0.6 % (0.0-0.0); Lymphocytes Absolute Auto 2.16 K/mm3 (1.10-4.50); Lymphocytes Percent Auto 25.4 % (18.0-42.0); Mean Corpuscular HGB Conc 32.1 g/dL (32-36); Mean Corpuscular Hemoglobin 31.6 pg (27.0-31.0); Mean Corpuscular Volume 98.5 fL (78.0-102.0); Mean Platelet Volume 10.6 fl (9.2-11.8); Monocytes Absolute Auto 0.62 K/mm3 (0.10-0.90); Monocytes Percent Auto 7.3 % (2.0-11.0); Neutrophils Absolute Auto 5.39 K/mm3 (1.70-7.20); Neutrophils Percent Auto 63.1 % (50.0-70.0); Platelet Count Result 374 K/mm3 (150-420); Red Blood Count 4.08 M/mm3 (4.20-5.40); Red Cell Distribution Width 13.8 % (11.6-14.4); White Blood Count 8.5 K/mm3 (4.8-10.8)
[2024-08-31 15:32] LABS: Erythrocyte Sedimentation Rate 30 mm/hr (0-30)
== END 2024-08-31 13:50 | disposition home or self-care (01) ==
PROVIDERS: Visit Provider Internal Medicine
DX: R06.00 Dyspnea, unspecified (principal)
CPT/HCPCS: 36415; 80053; 83880; 85025; 85652; 86140